=== PATIENT | male | born 1985 | race African-American/Black ===

== ENCOUNTER 2019-09-08 06:05 | Emergency (ER) | payer SELFPAY ==
[~2019-09-08] VITALS: Ht 170.2 cm; Wt 64.0 kg
[2019-09-08 06:21] VITALS: BP 137/84
[2019-09-08] MEDS ORDERED: IBUPROFEN 600MG TABLET PO ONE (07:00)
== END 2019-09-08 07:37 | disposition home or self-care (01) ==
LOC: ER 06:05
DX: J32.9 Chronic sinusitis, unspecified (principal); F17.200 Nicotine dependence, unspecified, uncomplicated
CPT/HCPCS: 99281